=== PATIENT | female | born 2000 | race Caucasian/White ===

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

== ENCOUNTER 2025-03-06 15:11 | Inpatient (IN) | payer BC, MEDICAID, OTHER ==
[2025-03-06] MEDS: SODIUM CHLORIDE 0.9% 1,000 ML IV ONE (15:30)
--- NOTE | 2025-03-06 16:07 | ED ---
Overdose HPI - General Chief Complaint: Psychiatric Symptoms Stated Complaint: Overdose Time Seen by Provider: 03/06/25 15:37 Source: patient, EMS, RN notes reviewed, old records reviewed Mode of arrival: EMS Limitations: altered mental status - History of Present Illness Initial Comments: This is a 24-year-old female to ER for psychiatric evaluation overdose on a plethora of medications including alcohol intoxication today. Minimally responsive here in the ER unable to answer questioning secondary to intoxicated state MD Complaint: intentional overdose, accidental overdose -: unknown Intent: unwilling to say Context: Accidental Overdose: wanted to get high Associated Symptoms: depression Treatments Prior to Arrival: none - Related Data Home Medications Medication Instructions Recorded Confirmed Dextroamphetamine/Amphetamine 25 mg PO DAILY 03/06/25 03/06/25 [Adderall Xr 25 mg Capsule] Dextroamphetamine/Amphetamine 10 mg PO BID 03/06/25 03/06/25 [Adderall] Gabapentin 300 mg PO TID 03/06/25 03/06/25 cloNIDine HCL 0.2 mg PO HS 03/06/25 03/06/25 lamoTRIgine [LaMICtal] See Taper PO DIRECTED 03/06/25 03/06/25 traZODone HCL [Desyrel] 50 - 150 mg PO HS 03/06/25 03/06/25 Allergies Allergy/AdvReac Type Severity Reaction Status Date / Time dexmethylphenidate Allergy Anaphylaxis Verified 03/06/25 18:06 [From Focalin] Review of Systems ROS Statement: Those systems with pertinent positive or pertinent negative responses have been documented in the HPI. ROS Other: All systems not noted in ROS Statement are negative. Past Medical History Past Medical History: No Reported History History of Any Multi-Drug Resistant Organisms: None Reported Past Surgical History: No Surgical Hx Reported Past Psychological History: ADD/ADHD, Anxiety, Bipolar, Depression Smoking Status: Never smoker Past Alcohol Use History: None Reported Past Drug Use History: Marijuana General Exam Limitations: altered mental status General appearance: alert, in no apparent distress, lethargic Head exam: Present: atraumatic, normocephalic, normal inspection Eye exam: Present: normal appearance, PERRL, EOMI. Absent: scleral icterus, conjunctival injection, periorbital swelling ENT exam: Present: normal exam, mucous membranes moist Neck exam: Present: normal inspection. Absent: tenderness, meningismus, lymphadenopathy Respiratory exam: Present: normal lung sounds bilaterally. Absent: respiratory distress, wheezes, rales, rhonchi, stridor Cardiovascular Exam: Present: regular rate, normal rhythm, normal heart sounds. Absent: systolic murmur, diastolic murmur, rubs, gallop, clicks GI/Abdominal exam: Present: soft, normal bowel sounds. Absent: distended, tenderness, guarding, rebound, rigid Extremities exam: Present: normal inspection, full ROM, normal capillary refill. Absent: tenderness, pedal edema, joint swelling, calf tenderness Back exam: Present: normal inspection Neurological exam: Present: alert, oriented X3, CN II-XII intact Psychiatric exam: Present: normal affect, normal mood Skin exam: Present: warm, dry, intact, normal color. Absent: rash Course Vital Signs 03/06/25 03/06/25 03/06/25 15:14 15:37 15:50 Pulse Rate 66 71 56 L Respiratory 16 16 15 Rate Blood Pressure 82/53 81/50 82/45 O2 Sat by Pulse 98 97 96 Oximetry 03/06/25 03/06/25 03/06/25 15:55 16:00 16:05 Pulse Rate 56 L 57 L 55 L Respiratory 15 15 15 Rate Blood Pressure 83/48 85/46 80/49 O2 Sat by Pulse 96 96 96 Oximetry 03/06/25 03/06/25 03/06/25 16:10 16:15 16:20 Pulse Rate 53 L 52 L 72 Respiratory 13 14 17 Rate Blood Pressure 84/47 81/50 84/50 O2 Sat by Pulse 97 96 97 Oximetry 03/06/25 03/06/25 03/06/25 16:25 16:30 16:35 Pulse Rate 55 L 54 L 51 L Respiratory 15 12 11 L Rate Blood Pressure 83/47 71/42 79/67 O2 Sat by Pulse 97 97 Oximetry 03/06/25 03/06/25 03/06/25 16:38 16:40 16:45 Pulse Rate 58 L 53 L Respiratory 16 16 Rate Blood Pressure 77/41 77/41 78/57 O2 Sat by Pulse 96 97 98 Oximetry 03/06/25 03/06/25 03/06/25 16:50 16:55 17:00 Pulse Rate 55 L 63 53 L Respiratory 13 17 16 Rate Blood Pressure 82/48 90/74 84/51 O2 Sat by Pulse 97 98 97 Oximetry 03/06/25 03/06/25 03/06/25 17:05 17:10 17:20 Pulse Rate 54 L 52 L 53 L Respiratory 15 15 15 Rate Blood Pressure 88/54 87/54 85/54 O2 Sat by Pulse 96 94 L 94 L Oximetry 03/06/25 03/06/25 03/06/25 17:30 17:40 17:50 Pulse Rate 53 L 56 L 57 L Respiratory 14 14 16 Rate Blood Pressure 74/47 80/49 78/50 O2 Sat by Pulse 94 L 95 92 L Oximetry 03/06/25 03/06/25 03/06/25 18:00 18:10 18:20 Pulse Rate 58 L 57 L 56 L Respiratory 15 15 13 Rate Blood Pressure 86/45 81/54 88/51 O2 Sat by Pulse 94 L 92 L 94 L Oximetry 03/06/25 03/06/25 03/07/25 21:26 22:09 02:54 Pulse Rate 50 L 47 L 50 L Respiratory 16 16 16 Rate Blood Pressure 91/68 92/69 103/80 O2 Sat by Pulse 94 L 94 L 92 L Oximetry 03/07/25 03/07/25 03/07/25 05:25 09:40 09:44 Pulse Rate 42 L 42 L 44 L Respiratory 16 18 Rate Blood Pressure 120/84 136/96 O2 Sat by Pulse 94 L 98 Oximetry 03/07/25 03/07/25 12:22 15:13 Pulse Rate 44 L 46 L Respiratory 18 18 Rate Blood Pressure 133/96 131/89 O2 Sat by Pulse 99 97 Oximetry - Reevaluation(s) Reevaluation #1: 03/06/25 16:21 Medical records reviewed Reevaluation #2: 03/06/25 18:43 Patient remains somnolent here in the ER Reevaluation #3: 03/06/25 18:43 Patient informed of results and questions answered Reevaluation #4: Was pt. sent in by a medical professional or institution (, PA, MEDICAL MICROBIOLOGIST, urgent care, hospital, or long term...) When possible be specific @ -no Did you speak to anyone other than the patient for history (EMS, parent, family, police, friend...)? What history was obtained from this source @ -no Did you review nursing and triage notes (agree or disagree)? Why? @ -agree Are old charts reviewed (outside hosp., previous admission, EMS record, old EKG, old radiological studies, urgent care reports/EKG's, long term records)? Report findings @ -yes Differential Diagnosis (chest pain, altered mental status, abdominal pain women, abdominal pain men, vaginal bleeding, weakness, fever, dyspnea, syncope, headache, dizziness, GI bleed, back pain, seizure, CVA, palpatations, mental health, musculoskeletal)? @ -prior EKG interpreted by me (3pts min.). @ -yes X-rays interpreted by me (1pt min.). @ -no CT interpreted by me (1pt min.). @ -no U/S interpreted by me (1pt. min.). @ -no What testing was considered but not performed or refused? (CT, X-rays, U/S, labs)? Why? @ -none What meds were considered but not given or refused? Why? @ -none Did you discuss the management of the patient with other professionals (professionals i.e. , PA, MEDICAL MICROBIOLOGIST, lab, RT, psych nurse, social work manager, manager office, teacher, child support officer, case checker)? Give summary @ -no Was smoking cessation discussed for >3mins.? @ -no Was critical care preformed (if so, how long)? @ -yes31 Were there social determinants of health that impacted care today? How? (Ho melessness, low income, unemployed, alcoholism, drug addiction, transportation, low edu. Level, literacy, decrease access to med. care, long-term, rehab)? @ -none Was there de-escalation of care discussed even if they declined (Discuss DNR or withdrawal of care, Hospice)? DNR status @ -no What co-morbidities impacted this encounter? (DM, HTN, Smoking, COPD, CAD, Cancer, CVA, ARF, Chemo, Hep., AIDS, mental health diagnosis, sleep apnea, morbid obesity)? @ -none Was patient admitted / discharged? Hospital course, mention meds given and route, prescriptions, significant lab abnormalities, going to OR and other pertinent info. @ - 24 female to the ER for evaluation of acute alcohol intoxication with polysubstance overdose patient admitted for alcohol intoxication found on EKG to have prolonged QT also concerning, patient will have cardiology evaluation prolonged QT Admitted Undiagnosed new problem with uncertain prognosis? @ -no Drug Therapy requiring intensive monitoring for toxicity (Heparin, Nitro, Insulin, Cardizem)? @ -no Were any procedures done? @ -no Diagnosis/symptom? @ -Alcohol intoxication QT prolongation Acute, or Chronic, or Acute on Chronic? @ -Acute Uncomplicated (without systemic symptoms) or Complicated (systemic symptoms)? @ -Complicated Side effects of treatment? @ -no Exacerbation, Progression, or Severe Exacerbation? @ -exacerbation Poses a threat to life or bodily function? How? (Chest pain, [place], [place], pneumonia, PE, COPD, DKA, ARF, appy, cholecystitis, CVA, Diverticulitis, Homicidal, Suicidal, threat to staff... and all critical care pts) @ -yes with acute QT prolongation Reevaluation #5: Differential Altered Mental Status: Hypoglycemia, DKA, hypercapnia, ETOH, overdose, CO poisoning, trauma, myxedema coma, HTN encephalopathy, infection, encephalitis, psychosis, intercranial hemorrhage, hepatic encephalopathy, meningitis, CVA, this is not meant to be an all-inclusive list Differential Mental Health Depression, anxiety, bipolar, psychosis, schizophrenia, borderline personality, situational depression, adjustment disorder, behavioral disorder, brain tumor, malingering, substance abuse, encephalopathy, medication reaction, dementia, hypothyroidism, degenerative neurologic disorder, lupus.... This is not meant to be all-inclusive list - Consultations Consultation #1: Spoke with [facility] who agrees to admit this patient Medical Decision Making - Medical Decision Making 24 female to the ER for evaluation of acute alcohol intoxication with polysubstance overdose patient admitted for alcohol intoxication found on EKG to have prolonged QT also concerning, patient will have cardiology evaluation prolonged QT - Lab Data Result diagrams: 03/08/25 07:09 03/08/25 07:09 Lab Results 03/06/25 03/06/25 03/06/25 Range/Units 15:35 15:35 15:35 WBC 5.52 (4.50-10.00) 10*3/uL RBC 3.74 L (4.10-5.20) 10*6/uL Hgb 13.7 (12.0-15.0) g/dL Hct 38.2 (37.2-46.3) % MCV 102.1 H (80.0-97.0) fL MCH 36.6 H (27.0-32.0) pg MCHC 35.9 (32.0-37.0) g/dL Plt Count 255 (140-440) 10*3/uL MPV 10.3 (9.5-12.2) fL Immature Gran % (Auto) 0.2 % Neutrophils % 68.2 % Lymphocytes % 23.7 % Monocytes % 6.7 % Eosinophils % 0.7 % Basophils % 0.5 % Immature Gran # 0.01 (0.00-0.04) 10*3/uL Neutrophils # 3.76 (1.80-7.70) 10*3/uL Lymphocytes # 1.31 (0.90-5.00) 10*3/uL Monocytes # 0.37 (0.20-1.00) 10*3/uL Eosinophils # 0.04 (0.04-0.35) 10*3/uL Basophils # 0.03 (0.00-0.10) 10*3/uL Sodium 141 (137-145) mmol/L Potassium 4.0 (3.5-5.1) mmol/L Chloride 109 H (98-107) mmol/L Carbon Dioxide 17 L (22-30) mmol/L Anion Gap 15 mmol/L BUN 7 (7-17) mg/dL Creatinine 0.64 (0.52-1.04) mg/dL Est GFR (CKD-EPI)AfAm >90 (>60 ml/min/1.73 sqM) Est GFR (CKD-EPI)NonAf >90 (>60 ml/min/1.73 sqM) Glucose 117 H (74-99) mg/dL Calcium 8.6 (8.4-10.2) mg/dL Phosphorus 4.5 4.5 (2.5-4.5) mg/dL Magnesium 1.7 (1.6-2.3) mg/dL Total Bilirubin 0.2 (0.2-1.3) mg/dL AST 58 H (14-36) U/L ALT 54 H (4-34) U/L Alkaline Phosphatase 56 (38-126) U/L Total Protein 6.3 (6.3-8.2) g/dL Albumin 3.8 (3.5-5.0) g/dL Lipase 71 (23-300) U/L Salicylates <1.0 mg/dL Acetaminophen <10.0 ug/mL Serum Alcohol 192 mg/dL - EKG Data -: EKG Interpreted by Me (EKG is sinus bradycardia 58 ME 167 QRS 90 QTc 545, prolonged QT) Disposition Clinical Impression: Depression, Adjustment reaction of adult life, Psychosis, Overdose, Alcohol intoxication, Prolonged QT interval Disposition: ADMITTED IP TO THIS HOSP Condition: Fair Is patient prescribed a controlled substance at d/c from ED?: No Time of Disposition: 18:30
[2025-03-06 16:10] LABS: Basophils # (A) 0.03 10*3/uL (0.00-0.10); Basophils % (A) 0.5 %; Eosinophils # (A) 0.04 10*3/uL (0.04-0.35); Eosinophils % (A) 0.7 %; HCT 38.2 % (37.2-46.3); HGB 13.7 g/dL (12.0-15.0); Lymphocytes # (A) 1.31 10*3/uL (0.90-5.00); Lymphocytes % (A) 23.7 %; MCH 36.6 pg (27.0-32.0); MCHC 35.9 g/dL (32.0-37.0); MCV 102.1 fL (80.0-97.0); Monocytes # (A) 0.37 10*3/uL (0.20-1.00); Monocytes % (A) 6.7 %; Neutrophils # (A) 3.76 10*3/uL (1.80-7.70); Neutrophils % (A) 68.2 %; Platelet Count 255 10*3/uL (140-440); RBC 3.74 10*6/uL (4.10-5.20); RDW 13.0 % (11.5-14.5); WBC 5.52 10*3/uL (4.50-10.00)
[2025-03-06] MEDS: SODIUM CHLORIDE 0.9% 1,000 ML IV STA (16:18)
[2025-03-06 16:26] LABS: ALT 54 U/L (4-34); AST 58 U/L (14-36); Acetaminophen <10.0 ug/mL; African American GFR (CKD) >90 (>60 ml/min/1.73 sqM); Albumin 3.8 g/dL (3.5-5.0); Alkaline Phosphatase 56 U/L (38-126); Anion Gap 15 mmol/L; Blood Urea Nitrogen 7 mg/dL (7-17); Calcium 8.6 mg/dL (8.4-10.2); Carbon Dioxide 17 mmol/L (22-30); Chloride 109 mmol/L (98-107); Glucose 117 mg/dL (74-99); Lipase 71 U/L (23-300); Magnesium 1.7 mg/dL (1.6-2.3); Non-African American GFR(CKD) >90 (>60 ml/min/1.73 sqM); Potassium 4.0 mmol/L (3.5-5.1); Salicylate <1.0 mg/dL; Sodium 141 mmol/L (137-145); Total Protein 6.3 g/dL (6.3-8.2)
[2025-03-06] MEDS: MAGNESIUM SULFATE-D5W PMX 1 GM in DEXTROSE/WATER 1 100ML.BAG IVPB SCH (17:23)
[2025-03-06] MEDS ORDERED: NALOXONE 0.4 MG/ML 1 ML VIAL IV PRN (18:43)
[2025-03-06] MEDS ORDERED: ONDANSETRON 4 MG/2 ML VIAL IVP PRN (18:43)
[2025-03-06] MEDS: DEXTROSE 5%-0.45% NACL 1,000 ML IV SCH (20:13)
[2025-03-07 05:23] LABS: Bacteria,Urine Few /hpf; Bilirubin,Urine Negative (Negative); Blood,Urine Negative (Negative); Color,Urine Light Yellow; Glucose,Urine (UA) Negative (Negative); Hyaline Casts,Urine 1 /lpf (0-2); Ketones,Urine Negative (Negative); Leukocyte Esterase,Urine Large (Negative); Mucus,Urine Occasional /hpf; Nitrite,Urine Negative (Negative); PH, Urine 5.5 (5.0-8.0); Protein,Urine Negative (Negative); RBC,Urine 2 /hpf (0-5); Specific Gravity,Urine 1.015 (1.001-1.035); Squamous Epithelial Cell,Urine 12 /hpf (0-4); Urobilinogen,Urine <2.0 mg/dL (<2.0); WBC,Urine 68 /hpf (0-5)
[2025-03-07 05:56] LABS: Barbiturate Screen,Urine Not Detected (NotDetected); Benzodiazepines Screen,Urine Not Detected (NotDetected); Opiate Screen,Urine Not Detected (NotDetected); Oxycodone Screen, Urine Not Detected (NotDetected); Phencyclidine Screen,Urine Not Detected (NotDetected); Tricyclic Antidepressant,Urine Not Detected (NotDetected); Urn Cannabinoid Scrn Detected (NotDetected)
[2025-03-07] MEDS ORDERED: METOCLOPRAMIDE 5 MG/ML 2 ML VIAL IVP PRN (08:59)
--- NOTE | 2025-03-07 09:09 | P.CRDCN ---
History of Present Illness Consult date: 03/07/25 Reason for Consult (text): QT prolongation History of present illness: This is Naveed Gee NP, I'm dictating on behalf of Dr. Crocker's H&P and A&P The patient was interviewed and examined. HPI: Patient is a 24-year-old female who presented to the hospital after overdose on a plethora of medications as well as alcohol. Patient reports she is tired and is not at answering many questions at this time, she is also still intoxicated. Apparently the patient unintentionally overdosed, stating that she just wanted to "get high". Cardiology is consulted due to prolonged QT interval on EKG. EKG does demonstrate sinus bradycardia with a prolonged QT interval of around 540. The medications the patient took are unknown, so it is possible she had QT prolonging medications adjusted. She denies any chest pain or shortness of breath at this time. ROS: [No fever, chills, or rigors] [no cough, phlegm, or expectoration] [Positive nausea, no vomiting, or diarrhea] [no hematuria, dysuria] [no musculoskelatal complaints] [no strokes or seizures] [no skin lesions] EXAMINATION: GENERAL: Somnolent, well-nourished and in no acute distress. NECK: Supple without JVD or thyromegaly. LUNGS: Breath sounds clear to auscultation bilaterally. Respiration equal and unlabored. No wheezes, rales or rhonchi. HEART: Regular rate and rhythm without murmurs, rubs or gallops. S1 and S2 heard. EXTREMITIES: Normal range of motion, no edema. No clubbing or cyanosis. Peripheral pulses intact and strong. REVIEW OF LABS, ECG & MEDICAL DATA: LABS: White count 5.5, hemoglobin 13.7, platelets 255, sodium 141, potassium 4, chloride 109, BUN 7, creatinine 0.64, calcium 8.6, phosphorus 4.5, magnesium 1.7 EKG: Sinus bradycardia with prolonged QT interval, 545 IMAGING: No imaging studies done VITALS: Pulse 42, respirations 16, blood pressure 120/84, O2 saturation 94% on room air IMPRESSION: 1. Drug overdose, substances unknown 2. Acute alcohol intoxication 3. Prolonged QTc interval PLAN: Discontinue Zofran. Start Reglan 5 mg IV push every 8 hours as needed for nausea vomiting. Avoid QT prolonging medications. Give 2 g of IV magnesium now. Keep potassium and magnesium within normal limits. Magnesium should stay above 2. Anticipate QT prolongation to improve as substances cycle out of her system. No further recommendations from a cardiology standpoint. Thank you for the consult and allowing us to participate in the care of this patient. Past Medical History Past Medical History: No Reported History History of Any Multi-Drug Resistant Organisms: None Reported Past Surgical History: No Surgical Hx Reported Past Psychological History: ADD/ADHD, Anxiety, Bipolar, Depression Smoking Status: Never smoker Past Alcohol Use History: None Reported Past Drug Use History: Marijuana Medications and Allergies Home Medications Medication Instructions Recorded Confirmed Type Dextroamphetamine/Amphetamine 25 mg PO DAILY 03/06/25 03/06/25 History [Adderall Xr 25 mg Capsule] Dextroamphetamine/Amphetamine 10 mg PO BID 03/06/25 03/06/25 History [Adderall] Gabapentin 300 mg PO TID 03/06/25 03/06/25 History cloNIDine HCL 0.2 mg PO HS 03/06/25 03/06/25 History lamoTRIgine [LaMICtal] See Taper PO DIRECTED 03/06/25 03/06/25 History traZODone HCL [Desyrel] 50 - 150 mg PO HS 03/06/25 03/06/25 History Allergies Allergy/AdvReac Type Severity Reaction Status Date / Time dexmethylphenidate Allergy Anaphylaxis Verified 03/06/25 18:06 [From Focalin] Physical Exam Vitals: Vital Signs Pulse Resp BP Pulse Ox 03/07/25 05:25 42 L 16 120/84 94 L 03/07/25 02:54 50 L 16 103/80 92 L 03/06/25 22:09 47 L 16 92/69 94 L 03/06/25 21:26 50 L 16 91/68 94 L 03/06/25 18:20 56 L 13 88/51 94 L 03/06/25 18:10 57 L 15 81/54 92 L 03/06/25 18:00 58 L 15 86/45 94 L 03/06/25 17:50 57 L 16 78/50 92 L 03/06/25 17:40 56 L 14 80/49 95 03/06/25 17:30 53 L 14 74/47 94 L 03/06/25 17:20 53 L 15 85/54 94 L 03/06/25 17:10 52 L 15 87/54 94 L 03/06/25 17:05 54 L 15 88/54 96 03/06/25 17:00 53 L 16 84/51 97 03/06/25 16:55 63 17 90/74 98 03/06/25 16:50 55 L 13 82/48 97 03/06/25 16:45 53 L 16 78/57 98 03/06/25 16:40 58 L 16 77/41 97 03/06/25 16:38 77/41 96 03/06/25 16:35 51 L 11 L 79/67 03/06/25 16:30 54 L 12 71/42 97 03/06/25 16:25 55 L 15 83/47 97 03/06/25 16:20 72 17 84/50 97 03/06/25 16:15 52 L 14 81/50 96 03/06/25 16:10 53 L 13 84/47 97 03/06/25 16:05 55 L 15 80/49 96 03/06/25 16:00 57 L 15 85/46 96 03/06/25 15:55 56 L 15 83/48 96 03/06/25 15:50 56 L 15 82/45 96 03/06/25 15:37 71 16 81/50 97 03/06/25 15:14 66 16 82/53 98 Intake and Output 03/06/25 03/07/25 03/07/25 22:59 06:59 14:59 Other: Weight 58.967 kg Results 03/06/25 15:35 03/06/25 15:35 Cardiac Enzymes 03/06/25 Range/Units 15:35 AST 58 H (14-36) U/L CBC 03/06/25 Range/Units 15:35 WBC 5.52 (4.50-10.00) 10*3/uL RBC 3.74 L (4.10-5.20) 10*6/uL Hgb 13.7 (12.0-15.0) g/dL Hct 38.2 (37.2-46.3) % Plt Count 255 (140-440) 10*3/uL Comprehensive Metabolic Panel 03/06/25 Range/Units 15:35 Sodium 141 (137-145) mmol/L Potassium 4.0 (3.5-5.1) mmol/L Chloride 109 H (98-107) mmol/L Carbon Dioxide 17 L (22-30) mmol/L BUN 7 (7-17) mg/dL Creatinine 0.64 (0.52-1.04) mg/dL Glucose 117 H (74-99) mg/dL Calcium 8.6 (8.4-10.2) mg/dL AST 58 H (14-36) U/L ALT 54 H (4-34) U/L Alkaline Phosphatase 56 (38-126) U/L Total Protein 6.3 (6.3-8.2) g/dL Albumin 3.8 (3.5-5.0) g/dL Current Medications Generic Name Dose Route Start Last Admin Trade Name Freq PRN Reason Stop Dose Admin Dextrose/Sodium Chloride 1,000 mls @ 60 mls/hr 03/06/25 18:45 03/06/25 20:13 Dextrose 5%-1/2ns Iv Soln IV 60 mls/hr .[id number] MOUNIKA Administration Magnesium Sulfate/Dextrose 1 100 mls @ 100 mls/hr 03/07/25 09:00 gm/ IV Solution IVPB 03/07/25 10:59 Q1H MOUNIKA Metoclopramide HCl 5 mg 03/07/25 08:59 Metoclopramide 5 Mg/Ml 2 Ml Vial IVP Q8H PRN Nausea And Vomiting Naloxone HCl 0.2 mg 03/06/25 18:43 Naloxone 0.4 Mg/Ml 1 Ml Vial IV Q2M PRN Opioid Reversal Intake and Output 03/06/25 03/07/25 03/07/25 22:59 06:59 14:59 Other: Weight 58.967 kg 03/06/25 15:35 03/06/25 15:35
[2025-03-07 09:29] LABS: Basophils # (A) 0.04 10*3/uL (0.00-0.10); Basophils % (A) 0.4 %; Eosinophils # (A) 0.19 10*3/uL (0.04-0.35); Eosinophils % (A) 1.7 %; HCT 39.9 % (37.2-46.3); HGB 13.9 g/dL (12.0-15.0); Lymphocytes # (A) 2.06 10*3/uL (0.90-5.00); Lymphocytes % (A) 18.9 %; MCH 36.1 pg (27.0-32.0); MCHC 34.8 g/dL (32.0-37.0); MCV 103.6 fL (80.0-97.0); Monocytes # (A) 0.58 10*3/uL (0.20-1.00); Monocytes % (A) 5.3 %; Neutrophils # (A) 7.99 10*3/uL (1.80-7.70); Neutrophils % (A) 73.4 %; Platelet Count 287 10*3/uL (140-440); RBC 3.85 10*6/uL (4.10-5.20); RDW 13.1 % (11.5-14.5); WBC 10.89 10*3/uL (4.50-10.00)
[2025-03-07] MEDS: MAGNESIUM SULFATE-D5W PMX 1 GM in DEXTROSE/WATER 1 100ML.BAG IVPB SCH (09:29)
[2025-03-07 09:40] LABS: ALT 45 U/L (4-34); AST 45 U/L (14-36); African American GFR (CKD) >90 (>60 ml/min/1.73 sqM); Albumin 3.5 g/dL (3.5-5.0); Albumin/Globulin Ratio 1.3; Alkaline Phosphatase 63 U/L (38-126); Anion Gap 5 mmol/L; Blood Urea Nitrogen 4 mg/dL (7-17); Calcium 9.5 mg/dL (8.4-10.2); Carbon Dioxide 21 mmol/L (22-30); Chloride 108 mmol/L (98-107); Globulin 2.6 g/dL; Glucose 114 mg/dL (74-99); Magnesium 1.9 mg/dL (1.6-2.3); Non-African American GFR(CKD) >90 (>60 ml/min/1.73 sqM); Potassium 4.5 mmol/L (3.5-5.1); Sodium 134 mmol/L (137-145); Total Protein 6.1 g/dL (6.3-8.2)
[2025-03-07] MEDS ORDERED: LORazepam 1 MG TAB PO PRN ×3 (09:56)
[2025-03-07] MEDS ORDERED: LORazepam 1 MG/0.5 ML VIAL IV PRN ×3 (09:56)
--- NOTE | 2025-03-07 17:19 | P.HPIM ---
History of Present Illness H&P Date: 03/07/25 History of present illness; patient is a 24-year-old lady with past medical history significant for ADHD, depression, anxiety, borderline personality disorder who presented to the ER for alcohol intoxication and possible overdose. Patient stated that there was some misconception regarding her taking medications as she had not slept for couple of days and while talking with her friends they got the impression that she was overdosing on them. There was no evidence of any trauma. There was no evidence of any self-inflicted wounds. Patient denies any homicidal or suicidal thoughts. Patient denies any auditory or visual hallucinations. Initial lab work done in the ER showed BBC 5.52, hemoglobin 13.7, platelet count 255, sodium 141, potassium 4, anion gap 15, BUN 7, creatinine 0.64, glucose 117, AST 58, ALT 54 UA done showed large amount of leukocyte Estrace, urine WBC 68 Urine drug screen positive for marijuana Serum alcohol level 192 EKG done in the ER showed heart rate of58 , no ST segment elevation or depression seen, no T-wave inversions seen. QT was 548 Patient admitted to internal medicine service REVIEW OF SYSTEMS: CONSTITUTIONAL: No fever, no malaise, no fatigue. HEENT: No recent visual problems or hearing problems. Denied any sore throat. CARDIOVASCULAR: No chest pain, orthopnea, PND, no palpitations, no syncope. PULMONARY: No shortness of breath, no cough, no hemoptysis. GASTROINTESTINAL: No diarrhea, no nausea, no vomiting, no abdominal pain. NEUROLOGICAL: No headaches, no weakness, no numbness. HEMATOLOGICAL: Denies any bleeding or petechiae. GENITOURINARY: Denies any burning micturition, frequency, or urgency. MUSCULOSKELETAL/RHEUMATOLOGICAL: Denies any joint pain, swelling, or any muscle pain. ENDOCRINE: Denies any polyuria or polydipsia. The rest of the 14-point review of systems is negative. PHYSICAL EXAMINATION: GENERAL: The patient is alert and oriented x3, not in any acute distress. Well developed, well nourished. HEENT: Pupils are round and equally reacting to light. EOMI. No scleral icterus. No conjunctival pallor. Normocephalic, atraumatic. No pharyngeal erythema. No thyromegaly. CARDIOVASCULAR: S1 and S2 present. No murmurs, rubs, or gallops. PULMONARY: Chest is clear to auscultation, no wheezing or crackles. ABDOMEN: Soft, nontender, nondistended, normoactive bowel sounds. No palpable organomegaly. MUSCULOSKELETAL: No joint swelling or deformity. EXTREMITIES: No cyanosis, clubbing, or pedal edema. NEUROLOGICAL: Gross neurological examination did not reveal any focal deficits. SKIN: No rashes. Assessment and plan Alcohol intoxication Marijuana abuse Prolonged QT Acute transaminitis History of ADHD History of depression History of anxiety Monitor vital signs Monitor CBC Monitor CMP Continue telemetry monitoring Serial EKGs Maintain magnesium more than 2 Start patient on CIWA protocol Continue symptom triggered Ativan therapy Start thiamine and folic acid Consult psychiatry Cardiology consult Labs and medication were reviewed.. Continue same treatment. Continue with symptomatic treatment. Resume home medication. Monitor labs and vitals. DVT and GI prophylaxis. Further recommendations as per clinical course of the patient Dictation was produced using [employer] dictation software. please excuse any grammatical, word or spelling errors. Past Medical History Past Medical History: No Reported History History of Any Multi-Drug Resistant Organisms: None Reported Past Surgical History: No Surgical Hx Reported Past Psychological History: ADD/ADHD, Anxiety, Bipolar, Depression Smoking Status: Never smoker Past Alcohol Use History: None Reported Past Drug Use History: Marijuana Medications and Allergies Home Medications Medication Instructions Recorded Confirmed Type Dextroamphetamine/Amphetamine 25 mg PO DAILY 03/06/25 03/06/25 History [Adderall Xr 25 mg Capsule] Dextroamphetamine/Amphetamine 10 mg PO BID 03/06/25 03/06/25 History [Adderall] Gabapentin 300 mg PO TID 03/06/25 03/06/25 History cloNIDine HCL 0.2 mg PO HS 03/06/25 03/06/25 History lamoTRIgine [LaMICtal] See Taper PO DIRECTED 03/06/25 03/06/25 History traZODone HCL [Desyrel] 50 - 150 mg PO HS 03/06/25 03/06/25 History Allergies Allergy/AdvReac Type Severity Reaction Status Date / Time dexmethylphenidate Allergy Anaphylaxis Verified 03/06/25 18:06 [From Focalin] Physical Exam Vitals: Vital Signs Pulse Resp BP Pulse Ox 03/07/25 09:44 44 L 03/07/25 09:40 42 L 18 136/96 98 03/07/25 05:25 42 L 16 120/84 94 L 03/07/25 02:54 50 L 16 103/80 92 L 03/06/25 22:09 47 L 16 92/69 94 L 03/06/25 21:26 50 L 16 91/68 94 L 03/06/25 18:20 56 L 13 88/51 94 L 03/06/25 18:10 57 L 15 81/54 92 L 03/06/25 18:00 58 L 15 86/45 94 L 03/06/25 17:50 57 L 16 78/50 92 L 03/06/25 17:40 56 L 14 80/49 95 03/06/25 17:30 53 L 14 74/47 94 L 03/06/25 17:20 53 L 15 85/54 94 L 03/06/25 17:10 52 L 15 87/54 94 L 03/06/25 17:05 54 L 15 88/54 96 03/06/25 17:00 53 L 16 84/51 97 03/06/25 16:55 63 17 90/74 98 03/06/25 16:50 55 L 13 82/48 97 03/06/25 16:45 53 L 16 78/57 98 03/06/25 16:40 58 L 16 77/41 97 03/06/25 16:38 77/41 96 03/06/25 16:35 51 L 11 L 79/67 03/06/25 16:30 54 L 12 71/42 97 03/06/25 16:25 55 L 15 83/47 97 03/06/25 16:20 72 17 84/50 97 03/06/25 16:15 52 L 14 81/50 96 03/06/25 16:10 53 L 13 84/47 97 03/06/25 16:05 55 L 15 80/49 96 03/06/25 16:00 57 L 15 85/46 96 03/06/25 15:55 56 L 15 83/48 96 03/06/25 15:50 56 L 15 82/45 96 03/06/25 15:37 71 16 81/50 97 03/06/25 15:14 66 16 82/53 98 Intake and Output 03/06/25 03/07/25 03/07/25 22:59 06:59 14:59 Other: Weight 58.967 kg Results CBC & Chem 7: 03/07/25 09:01 03/07/25 09:01 Labs: Abnormal Lab Results - Last 24 Hours (Table) 03/06/25 03/06/25 03/07/25 Range/Units 15:35 15:35 04:56 WBC (4.50-10.00) 10*3/uL RBC 3.74 L (4.10-5.20) 10*6/uL MCV 102.1 H (80.0-97.0) fL MCH 36.6 H (27.0-32.0) pg Neutrophils # (1.80-7.70) 10*3/uL Sodium (137-145) mmol/L Chloride 109 H (98-107) mmol/L Carbon Dioxide 17 L (22-30) mmol/L BUN (7-17) mg/dL Glucose 117 H (74-99) mg/dL AST 58 H (14-36) U/L ALT 54 H (4-34) U/L Total Protein (6.3-8.2) g/dL Urine Appearance Cloudy H (Clear) Ur Leukocyte Esterase Large H (Negative) Urine WBC 68 H (0-5) /hpf Ur Squamous Epith Cells 12 H (0-4) /hpf Urine Bacteria Few H (None) /hpf Urine Mucus Occasional H (None) /hpf U Marijuana (THC) Screen Detected H (NotDetected) 03/07/25 03/07/25 Range/Units 09:01 09:01 WBC 10.89 H (4.50-10.00) 10*3/uL RBC 3.85 L (4.10-5.20) 10*6/uL MCV 103.6 H (80.0-97.0) fL MCH 36.1 H (27.0-32.0) pg Neutrophils # 7.99 H (1.80-7.70) 10*3/uL Sodium 134 L (137-145) mmol/L Chloride 108 H (98-107) mmol/L Carbon Dioxide 21 L (22-30) mmol/L BUN 4 L (7-17) mg/dL Glucose 114 H (74-99) mg/dL AST 45 H (14-36) U/L ALT 45 H (4-34) U/L Total Protein 6.1 L (6.3-8.2) g/dL Urine Appearance (Clear) Ur Leukocyte Esterase (Negative) Urine WBC (0-5) /hpf Ur Squamous Epith Cells (0-4) /hpf Urine Bacteria (None) /hpf Urine Mucus (None) /hpf U Marijuana (THC) Screen (NotDetected)
[2025-03-07] MEDS: NICOTINE 14MG/24HR PATCH TRANSDERM SCH (23:11)
[2025-03-08 07:29] LABS: Basophils # (A) 0.04 10*3/uL (0.00-0.10); Basophils % (A) 0.6 %; Eosinophils # (A) 0.23 10*3/uL (0.04-0.35); Eosinophils % (A) 3.6 %; HCT 38.9 % (37.2-46.3); HGB 13.7 g/dL (12.0-15.0); Lymphocytes # (A) 1.97 10*3/uL (0.90-5.00); Lymphocytes % (A) 30.5 %; MCH 35.7 pg (27.0-32.0); MCHC 35.2 g/dL (32.0-37.0); MCV 101.3 fL (80.0-97.0); Monocytes # (A) 0.63 10*3/uL (0.20-1.00); Monocytes % (A) 9.8 %; Neutrophils # (A) 3.58 10*3/uL (1.80-7.70); Neutrophils % (A) 55.3 %; Platelet Count 248 10*3/uL (140-440); RBC 3.84 10*6/uL (4.10-5.20); RDW 12.8 % (11.5-14.5); WBC 6.46 10*3/uL (4.50-10.00)
[2025-03-08 07:45] LABS: ALT 44 U/L (4-34); AST 44 U/L (14-36); African American GFR (CKD) >90 (>60 ml/min/1.73 sqM); Albumin 3.2 g/dL (3.5-5.0); Albumin/Globulin Ratio 1.2; Alkaline Phosphatase 59 U/L (38-126); Anion Gap 5 mmol/L; Blood Urea Nitrogen 4 mg/dL (7-17); Calcium 9.2 mg/dL (8.4-10.2); Carbon Dioxide 26 mmol/L (22-30); Chloride 105 mmol/L (98-107); Globulin 2.6 g/dL; Glucose 109 mg/dL (74-99); Non-African American GFR(CKD) >90 (>60 ml/min/1.73 sqM); Potassium 4.2 mmol/L (3.5-5.1); Sodium 136 mmol/L (137-145); Total Protein 5.8 g/dL (6.3-8.2)
[2025-03-08] MEDS: THIAMINE 100 MG TAB PO SCH (08:31)
--- NOTE | 2025-03-08 13:42 | P.CN ---
Psychiatric Consult - . Consult date: 03/08/25 Consult:: 03/08/25 13:35 IDENTIFYING DATA: This patient is a 24-year-old female, unemployed and living with parents REASON FOR REFERRAL: Psychiatry was consulted for overdose HISTORY OF PRESENT ILLNESS: The patient presented to the hospital with overdose on several medications. Per ER triage note, patient made suicidal comments online. Patient's alcohol level was 192 and EKG showed sinus bradycardia with a rate of 58, QTc 545. Cardiology was consulted and provided magnesium and changed nausea medications to Reglan. Patient seen and evaluated in her room and sitter was asked to step out during interview. Patient appeared to minimize symptoms and concerns, not forthcoming with information. She states not sleeping the previous night and she was arguing with her best friend. She states being in a group chat with her friends and she had made comments about wanting to sleep which concerned her friends and they contacted the ambulance. She claims to have only taken 1-0.2 mg clonidine and 2-100 mg trazodone in an attempt to sleep. As far as alcohol goes, she claims to have only done 1 shot of hard liquor however when patient was informed her blood alcohol level was 192 she later did admit to drinking more than the previous night. She report chronic sleep issues but denied any appetite changes, anhedonia, low energy or worsening in her concentration. Despite good appetite patient did not eat her breakfast or lunch today. She denied any anxiety. At this time patient denies any suicidal or homicidal ideations, intent or plan. Patient denies any auditory, visual hallucinations and denies any paranoia or delusions. Patients admits to using vape nicotine daily. She appeared to minimize her alcohol use. PAST PSYCHIATRIC HISTORY: Patient has a history of HD, borderline personality disorder, unspecified bipolar disorder, PTSD. Nightly prescribed Lamictal unknown dose, trazodone 50-150 mg at bedtime, clonidine 0.2 mg at bedtime, gabapentin 300 mg 3 times daily, Adderall XR 25 mg daily plus IR 10 mg twice daily. Patient follows with [facility] for behavioral health and has a psychiatrist there. Patient's last inpatient stay was from 04/28-05/01/2021 on the [facility]. She reports 1 previous suicide attempt 4 years ago. PAST MEDICAL HISTORY: Denies. ALLERGIES: as per EMR. CHEMICAL DEPENDENCY HISTORY: as per HPI. FAMILY PSYCHIATRIC/SUBSTANCE USE HISTORY: Patient states depression runs on both sides of her family including her parents and siblings and that her sister attempted suicide before SOCIAL HISTORY: Patient is single and has no children. She lives with her parents, completed high school however is unemployed. MENTAL STATUS EXAM: General Appearance: Patient appears to be stated age is alert, pleasant, and cooperative. Patient appears to have fair hygiene and grooming wearing hospital gown with fair eye contact. Behavior: Patient is calmly lying in bed without any agitated behavior. She is not forthcoming with information Speech: Patient's speech is fluent and nonpressured. Mood/Affect: Patient reports their mood is "better", affect is congruent Suicidality/Homicidality: Patient denies having any suicidal or homicidal ideation intent or plan. Perceptions: Patient denies any visual hallucinations and denies any auditory hallucinations Though content/process: There is no evidence of any delusional thought content and thought process is linear. Memory and concentration: AOX3, grossly intact for the purposes of this session. Can spell "WORLD" backwards Judgment and insight: Poor IMPRESSIONS: Suicide attempt via OD History of bipolar disorder Borderline personality disorder PLAN: -At this time patient DOES meet criteria for inpatient psychiatric admission. -Would recommend the following medication changes/additions: Will hold psychotropic medications upon transfer to the U. Repeat EKG ordered today as previous one showed QTc prolongation -CIWA protocol with PRN Ativan for alcohol withdrawal. Continue to monitor vital signs. -Continue 1:1 sitter for safety -Cannot leave AMA at this time. Patient will need a petition and certification if attempting to leave AMA. -When medically stable, patient is eligible for transfer to a psych bed when available. -Communicated plan to patient's nurse -Psychiatry will sign off at this time -Please contact with any questions.
--- NOTE | 2025-03-08 14:34 | P.DS ---
Providers Date of admission: 03/06/25 18:43 Expected date of discharge: 03/08/25 Attending physician: Alexandr Lennon Consults: 03/06/25 18:43 Consult Physician Routine Consulting Provider: Psychiatry - [facility] Psych[facility]ry Consult Reason/Comments: overdose Do you want consulting provider notified?: Yes Consult Physician Routine Consulting Provider: Rahul Kemp Consult Reason/Comments: prolongedQT Do you want consulting provider notified?: Yes Primary care physician: Stated None Hospital Course: Discharge diagnoses; Alcohol intoxication Marijuana abuse Suicide attempt via OD History of bipolar disorder Borderline personality disorder Prolonged QT Acute transaminitis History of ADHD History of depression History of anxiety Hospital course; patient is a 24-year-old lady with past medical history significant for ADHD, depression, anxiety, borderline personality disorder who presented to the ER for alcohol intoxication and possible overdose. Patient stated that there was some misconception regarding her taking medications as she had not slept for couple of days and while talking with her friends they got the impression that she was overdosing on them. There was no evidence of any trauma. There was no evidence of any self-inflicted wounds. Patient denies any homicidal or suicidal thoughts. Patient denies any auditory or visual hallucinations. Initial lab work done in the ER showed BBC 5.52, hemoglobin 13.7, platelet count 255, sodium 141, potassium 4, anion gap 15, BUN 7, creatinine 0.64, glucose 117, AST 58, ALT 54 UA done showed large amount of leukocyte Estrace, urine WBC 68 Urine drug screen positive for marijuana Serum alcohol level 192 EKG done in the ER showed heart rate of58 , no ST segment elevation or depression seen, no T-wave inversions seen. QT was 548 Patient admitted to internal medicine service 03/08. Patient seen and examined. Patient was eval by psychiatry, they recommended that patient needs to be transferred to inpatient psych once medically stable. Patient is currently medically stable for discharge to inpatient psych. PHYSICAL EXAMINATION: GENERAL: The patient is alert and oriented x3, not in any acute distress. Well developed, well nourished. HEENT: Pupils are round and equally reacting to light. EOMI. No scleral icterus. No conjunctival pallor. Normocephalic, atraumatic. No pharyngeal erythema. No thyromegaly. CARDIOVASCULAR: S1 and S2 present. No murmurs, rubs, or gallops. PULMONARY: Chest is clear to auscultation, no wheezing or crackles. ABDOMEN: Soft, nontender, nondistended, normoactive bowel sounds. No palpable organomegaly. MUSCULOSKELETAL: No joint swelling or deformity. EXTREMITIES: No cyanosis, clubbing, or pedal edema. NEUROLOGICAL: Gross neurological examination did not reveal any focal deficits. SKIN: No rashes. Dictation was produced using [employer] dictation software. please excuse any grammatical, word or spelling errors. Patient Condition at Discharge: Fair Plan - Discharge Summary Discharge Rx Participant: No New Discharge Prescriptions: Continue traZODone HCL [Desyrel] 50 - 150 mg PO HS Gabapentin 300 mg PO TID cloNIDine HCL 0.2 mg PO HS lamoTRIgine [LaMICtal] See Taper PO DIRECTED Dextroamphetamine/Amphetamine [Adderall] 10 mg PO BID Dextroamphetamine/Amphetamine [Adderall Xr 25 mg Capsule] 25 mg PO DAILY Discharge Medication List Dextroamphetamine/Amphetamine [Adderall Xr 25 mg Capsule] 25 mg PO DAILY 03/06/25 [History] Dextroamphetamine/Amphetamine [Adderall] 10 mg PO BID 03/06/25 [History] Gabapentin 300 mg PO TID 03/06/25 [History] cloNIDine HCL 0.2 mg PO HS 03/06/25 [History] lamoTRIgine [LaMICtal] See Taper PO DIRECTED 03/06/25 [History] traZODone HCL [Desyrel] 50 - 150 mg PO HS 03/06/25 [History] Follow up Appointment(s)/Referral(s): None,Stated [Primary Care Provider] - 1-2 days Discharge Disposition: HOME SELF-CARE
--- NOTE | 2025-03-09 10:53 | P.PN ---
Subjective Progress Note Date: 03/09/25 patient is a 24-year-old lady with past medical history significant for ADHD, depression, anxiety, borderline personality disorder who presented to the ER for alcohol intoxication and possible overdose. Patient stated that there was some misconception regarding her taking medications as she had not slept for couple of days and while talking with her friends they got the impression that she was overdosing on them. There was no evidence of any trauma. There was no evidence of any self-inflicted wounds. Patient denies any homicidal or suicidal thoughts. Patient denies any auditory or visual hallucinations. Initial lab work done in the ER showed BBC 5.52, hemoglobin 13.7, platelet count 255, sodium 141, potassium 4, anion gap 15, BUN 7, creatinine 0.64, glucose 117, AST 58, ALT 54 UA done showed large amount of leukocyte Estrace, urine WBC 68 Urine drug screen positive for marijuana Serum alcohol level 192 EKG done in the ER showed heart rate of58 , no ST segment elevation or depression seen, no T-wave inversions seen. QT was 548 Patient admitted to internal medicine service 03/08. Patient seen and examined. Patient was eval by psychiatry, they recommended that patient needs to be transferred to inpatient psych once medically stable. Patient is currently medically stable for discharge to inpatient psych. 03/09. Patient seen and examined. No acute issue overnight. Currently waiting on bed availability to inpatient psych REVIEW OF SYSTEMS: CONSTITUTIONAL: No fever, no malaise,. CARDIOVASCULAR: No chest pain, no palpitations, no syncope. PULMONARY: No shortness of breath, no cough, GASTROINTESTINAL: No diarrhea, no nausea, no vomiting, no abdominal pain. NEUROLOGICAL: No headaches, no weakness, PHYSICAL EXAMINATION: GENERAL: The patient is alert and oriented x3, not in any acute distress. Well developed, well nourished. HEENT: Pupils are round and equally reacting to light. EOMI. No scleral icterus. No conjunctival pallor. Normocephalic, atraumatic. No pharyngeal erythema. No thyromegaly. CARDIOVASCULAR: S1 and S2 present. No murmurs, rubs, or gallops. PULMONARY: Chest is clear to auscultation, no wheezing or crackles. ABDOMEN: Soft, nontender, nondistended, normoactive bowel sounds. No palpable organomegaly. MUSCULOSKELETAL: No joint swelling or deformity. EXTREMITIES: No cyanosis, clubbing, or pedal edema. NEUROLOGICAL: Gross neurological examination did not reveal any focal deficits. SKIN: No rashes. Assessment and plan Alcohol intoxication Marijuana abuse Suicide attempt via OD History of bipolar disorder Borderline personality disorder Prolonged QT Acute transaminitis History of ADHD History of depression History of anxiety Plan; Patient currently medically stable for discharge to inpatient psych, currently waiting on bed availability Labs and medication were reviewed.. Continue same treatment. Continue with symptomatic treatment. Resume home medication. Monitor labs and vitals. DVT and GI prophylaxis. Further recommendations as per clinical course of the patient Dictation was produced using [employer] dictation software. please excuse any grammatical, word or spelling errors. Objective - Vital Signs Vital signs: Vital Signs Temp 98.3 F 03/09/25 07:37 Pulse 63 03/09/25 07:37 Resp 18 03/09/25 07:37 BP 123/71 03/09/25 07:37 Pulse Ox 97 03/09/25 07:37 FiO2 Intake & Output 03/08/25 03/09/25 03/09/25 18:59 06:59 18:59 Other: # Voids 3 4 # Bowel Movements 0 0 - Labs CBC & Chem 7: 03/08/25 07:09 03/08/25 07:09
[2025-03-09] MEDS: ACETAMINOPHEN TAB 325 MG TAB PO PRN (18:44)
[2025-03-09 20:38] VITALS: RESP 16
[2025-03-09] MEDS: LORazepam 0.5 MG TAB PO PRN (21:32)
[2025-03-09] MEDS: IBUPROFEN 400 MG TAB PO PRN (23:46)
--- NOTE | 2025-03-10 13:52 | P.PN ---
Subjective Progress Note Date: 03/10/25 patient is a 24-year-old lady with past medical history significant for ADHD, depression, anxiety, borderline personality disorder who presented to the ER for alcohol intoxication and possible overdose. Patient stated that there was some misconception regarding her taking medications as she had not slept for couple of days and while talking with her friends they got the impression that she was overdosing on them. There was no evidence of any trauma. There was no evidence of any self-inflicted wounds. Patient denies any homicidal or suicidal thoughts. Patient denies any auditory or visual hallucinations. Initial lab work done in the ER showed BBC 5.52, hemoglobin 13.7, platelet count 255, sodium 141, potassium 4, anion gap 15, BUN 7, creatinine 0.64, glucose 117, AST 58, ALT 54 UA done showed large amount of leukocyte Estrace, urine WBC 68 Urine drug screen positive for marijuana Serum alcohol level 192 EKG done in the ER showed heart rate of58 , no ST segment elevation or depression seen, no T-wave inversions seen. QT was 548 Patient admitted to internal medicine service 03/08. Patient seen and examined. Patient was eval by psychiatry, they recommended that patient needs to be transferred to inpatient psych once medically stable. Patient is currently medically stable for discharge to inpatient psych. 03/09. Patient seen and examined. No acute issue overnight. Currently waiting on bed availability to inpatient psych 03/10. Patient seen and examined. No acute issues overnight. Psych reevaluated the patient, stated patient can be discharged home REVIEW OF SYSTEMS: CONSTITUTIONAL: No fever, no malaise,. CARDIOVASCULAR: No chest pain, no palpitations, no syncope. PULMONARY: No shortness of breath, no cough, GASTROINTESTINAL: No diarrhea, no nausea, no vomiting, no abdominal pain. NEUROLOGICAL: No headaches, no weakness, PHYSICAL EXAMINATION: GENERAL: The patient is alert and oriented x3, not in any acute distress. Well developed, well nourished. HEENT: Pupils are round and equally reacting to light. EOMI. No scleral icterus. No conjunctival pallor. Normocephalic, atraumatic. No pharyngeal erythema. No thyromegaly. CARDIOVASCULAR: S1 and S2 present. No murmurs, rubs, or gallops. PULMONARY: Chest is clear to auscultation, no wheezing or crackles. ABDOMEN: Soft, nontender, nondistended, normoactive bowel sounds. No palpable organomegaly. MUSCULOSKELETAL: No joint swelling or deformity. EXTREMITIES: No cyanosis, clubbing, or pedal edema. NEUROLOGICAL: Gross neurological examination did not reveal any focal deficits. SKIN: No rashes. Assessment and plan Alcohol intoxication Marijuana abuse Suicide attempt via OD History of bipolar disorder Borderline personality disorder Prolonged QT Acute transaminitis History of ADHD History of depression History of anxiety Plan; Psych cleared the patient for discharge home Labs and medication were reviewed.. Continue same treatment. Continue with symptomatic treatment. Resume home medication. Monitor labs and vitals. DVT and GI prophylaxis. Further recommendations as per clinical course of the patient Dictation was produced using [employer] dictation software. please excuse any grammatical, word or spelling errors. Objective - Vital Signs Vital signs: Vital Signs Temp 98.3 F 03/10/25 07:40 Pulse 72 03/10/25 07:40 Resp 16 03/10/25 08:40 BP 137/86 03/10/25 07:40 Pulse Ox 99 03/10/25 07:40 FiO2 Intake & Output 03/09/25 03/10/25 03/10/25 18:59 06:59 18:59 Intake Total 180 118 Balance 180 118 Intake: Oral 180 118 Other: Voiding Method Toilet # Voids 4 1 - Labs CBC & Chem 7: 03/08/25 07:09 03/08/25 07:09
--- NOTE | 2025-03-10 13:58 | P.PN ---
Progress Note - Text Progress Note Date: 03/10/25 IDENTIFYING DATA: Patient is a 24-year-old female, unemployed and living with parents REASON FOR CONSULT: Overdose INTERVAL HISTORY: Patient seen and evaluated. Spoke to patient's mother Monserrat who expressed concerns with patient being transferred to [facility] or [facility] due to past poor experiences with both. Mother expressed concerns regarding patient's substance use including heavy alcohol use, finding several empty bottles of tequila in her room with whippets. She states patient does have a psychiatrist at [facility] however she does not agree with the current medication regimen they have her on including Adderall and gabapentin, stating that patient abuses both of these medications. She states patient was in therapy however she has been resistant recently despite encouragement. Mother is interested in transferring services to [facility] as her current son has services there as well. Mom is interested in pursuing guardianship for patient. She states being okay with patient returning home, denying any access to firearms at home. Spoke to patient with one-to-one at bedside. Patient denies SI/HI or AVH. She states she will follow-up with her psychiatrist and will restart therapy with DBT therapy specifically brought up to patient. For her substances, patient was encouraged to at least attend outpatient rehab with AA meetings. She states she will be open to her mother keeping her medications locked up. Guardianship was discussed with patient. MENTAL STATUS EXAM: General Appearance: Patient appears to be stated age. Patient appears to have fair hygiene and grooming wearing hospital gown with fair eye contact. Behavior: Patient is calmly lying in bed without any agitated behavior. Speech: Normal rate, rhythm and volume Mood/Affect: Mood described as "good as it can get" and affect is blunted, mood congruent Suicidality/Homicidality: Patient denies any suicidal or homicidal ideations Perceptions: There are no perceptual abnormalities Though content/process: Thought process is linear logical, devoid of any delusional thoughts Judgment and insight: Poor IMPRESSIONS: Suicide attempt via OD History of bipolar disorder Borderline personality disorder PLAN: -At this time patient DOES NOT meet criteria for inpatient psychiatric admission. Mom does not want to fill out a petition and is agreeable with patient returning home with her, denying any firearms at home. -Would recommend the following medication changes/additions: Will defer any changes to her outpatient psychiatrist -RENALDO protocol with PRN Ativan for alcohol withdrawal. Continue to monitor vital signs. -Can discontinue 1:1 sitter at this time as patient is not currently an imminent threat to themselves -show worker to provide patient with outpatient mental health/psychiatry resources for appropriate follow up upon discharge -Portfolio Lead spoke with patient about substance abuse and the harmful effects on medical and mental health, patient verbally understood and agreed. -show worker to provide patient substance use treatment resources including AA/NA meetings in the community. -Communicated plan to patient's nurse -Psychiatry will sign off at this time -Please contact with any questions.
[2025-03-10 14:38] VITALS: TEMP 98.1
[2025-03-10 17:38] VITALS: BP 128/89; PULSE 98
== END 2025-03-10 18:31 | DRG 918 ==
LOC: EC 15:11 → 5NMEDONC 18:43 → 6NMEDSUR 03-07 14:41
PROVIDERS: ADMIT Hospitalist; ATTEND Hospitalist
PROC: HZ2ZZZZ Detoxification Services for Substance Abuse Treatment (ICD-10-PCS; principal; 2025-03-06)
DX: T50.902A Poisoning by unspecified drugs, medicaments and biological substances, intentional self-harm, initial encounter (principal); F29 Unspecified psychosis not due to a substance or known physiological condition; F10.129 Alcohol abuse with intoxication, unspecified; F12.10 Cannabis abuse, uncomplicated; F60.3 Borderline personality disorder; Z11.52 Encounter for screening for COVID-19; F31.9 Bipolar disorder, unspecified; F17.290 Nicotine dependence, other tobacco product, uncomplicated; I45.81 Long QT syndrome; R74.01 Elevation of levels of liver transaminase levels; R00.1 Bradycardia, unspecified; F43.10 Post-traumatic stress disorder, unspecified; F43.22 Adjustment disorder with anxiety; F90.9 Attention-deficit hyperactivity disorder, unspecified type; Y90.6 Blood alcohol level of 120-199 mg/100 ml; Z79.899 Other long term (current) drug therapy; Z91.51 Personal history of suicidal behavior; Z88.8 Allergy status to other drugs, medicaments and biological substances; Z71.41 Alcohol abuse counseling and surveillance of alcoholic
CPT/HCPCS: 36415; 80053; 80143; 80179; 80306; 80320; 81001; 81025; 83690; 83735; 84100; 85025; 87635; 93005; 96361; 96365; 96366; 99291